=== PATIENT | male | born 1990 | race Hispanic/Latino ===

== ENCOUNTER → 2021-08-23 | Outpatient (REF) | payer OTHER ==
[2021-08-23 17:54] LABS: SEMEN APPEARANCE OPAQUE (OPAQUE); SEMEN VISCOSITY LIQUID (LIQUID); SEMEN VOLUME 3.3 ml (2.0-5.0); SEMEN pH 8.5 (7.0-8.0); SPERM CONCENTRATION 61.3 M/ml (>=15.0); WBC CONCENTRATION <=1 M/ml (<=1 M/ml)
== END ==
LOC: M LAB REF 17:33
PROVIDERS: ATTEND Physician Assistant
DX: Z31.41 Encounter for fertility testing (principal)

== ENCOUNTER → 2023-07-06 | Outpatient (CLI) | payer OTHER | LOC: M RAD 14:36 | PROVIDERS: ATTEND Otolaryngology | DX: R43.8 Other disturbances of smell and taste (principal) ==